=== PATIENT | female | born 1980 | race Caucasian/White ===

== ENCOUNTER 2020-01-09 14:35 | Day surgery (SDC) | payer OTHER ==
[~2020-01-09 14:35] MED LIST: Acetaminophen 500 MG TAB PO PRN; Vedolizumab 300 MG in Sodium Chloride 0.9% 250 ML 250 ML IVPB SCH
[2020-01-09] MEDS ORDERED: Sodium Chloride 0.9% 20 ML ONE (14:37)
[2020-01-09 15:12] VITALS: BP 124/66; TEMP 98.7
== END 2020-01-09 15:50 | disposition home or self-care (01) ==
LOC: ONC/OP 14:35
PROVIDERS: ATTEND Internal Medicine Gastroenterology
DX: K51.90 Ulcerative colitis, unspecified, without complications (principal)
CPT/HCPCS: 96413; J3380; J7050

== ENCOUNTER 2020-01-25 14:08 | Day surgery (SDC) | payer OTHER ==
[~2020-01-25 14:08] MED LIST changes: +Acetaminophen 500 MG TAB PO SCH; +Sodium Chloride 0.9% 1,000 ML IV SCH
[2020-01-25 14:40] VITALS: BP 103/55; TEMP 98.1
== END 2020-01-25 15:27 | disposition home or self-care (01) ==
LOC: ONC/OP 14:08
PROVIDERS: ATTEND Internal Medicine Gastroenterology
DX: K51.90 Ulcerative colitis, unspecified, without complications (principal)
CPT/HCPCS: 96413; J3380; J7050

== ENCOUNTER 2020-02-28 14:29 | Day surgery (SDC) | payer OTHER ==
[2020-02-28] MEDS ORDERED: Sodium Chloride 0.9% 20 ML ONE (14:33)
[2020-02-28 14:55] VITALS: BP 112/67; TEMP 97.9
== END 2020-02-28 15:35 | disposition home or self-care (01) ==
LOC: ONC/OP 14:29
PROVIDERS: ATTEND Internal Medicine Gastroenterology
DX: K51.90 Ulcerative colitis, unspecified, without complications (principal)
CPT/HCPCS: 96413; J3380; J7050

== ENCOUNTER 2020-05-02 14:06 | Day surgery (SDC) | payer OTHER | END 2020-05-02 15:33 | disposition home or self-care (01) | LOC: ONC/OP 14:06 | PROVIDERS: ATTEND Internal Medicine Gastroenterology | DX: K51.90 Ulcerative colitis, unspecified, without complications (principal) | CPT/HCPCS: 96413; J3380; J7050 ==

== ENCOUNTER 2020-07-01 10:14 | Day surgery (SDC) | payer OTHER ==
[2020-07-01] MEDS ORDERED: Sodium Chloride 0.9% 20 ML ONE (10:32)
[2020-07-01 10:36] VITALS: BP 117/69
== END 2020-07-01 11:20 | disposition home or self-care (01) ==
LOC: ONC/OP 10:14
PROVIDERS: ATTEND Internal Medicine Gastroenterology
DX: K51.90 Ulcerative colitis, unspecified, without complications (principal)
CPT/HCPCS: 96413; J3380; J7050

== ENCOUNTER 2020-08-29 14:21 | Day surgery (SDC) | payer OTHER ==
[2020-08-29 14:57] VITALS: BP 119/63; TEMP 97.8
== END 2020-08-29 15:20 | disposition home or self-care (01) ==
LOC: ONC/OP 14:21
PROVIDERS: ATTEND Internal Medicine Gastroenterology
DX: K51.90 Ulcerative colitis, unspecified, without complications (principal)
CPT/HCPCS: 96413; J3380; J7050

== ENCOUNTER 2020-10-29 10:42 | Day surgery (SDC) | payer OTHER ==
[2020-10-29 11:12] VITALS: BP 108/66; TEMP 98.4
[2020-10-29] MEDS ORDERED: Sodium Chloride 0.9% 20 ML ONE (11:19)
== END 2020-10-29 11:41 | disposition home or self-care (01) ==
LOC: ONC/OP 10:42
PROVIDERS: ATTEND Internal Medicine Gastroenterology
DX: K51.90 Ulcerative colitis, unspecified, without complications (principal)
CPT/HCPCS: 96413; J3380; J7050

== ENCOUNTER 2021-01-01 10:28 | Day surgery (SDC) | payer OTHER ==
[~2021-01-01 10:28] MED LIST changes: -Acetaminophen 500 MG TAB PO SCH; +Sodium Chloride 0.9% 20 ML ONE
[2021-01-01 10:38] VITALS: BP 108/67; TEMP 98.6
== END 2021-01-01 12:32 | disposition home or self-care (01) ==
LOC: ONC/OP 10:28
PROVIDERS: ATTEND Internal Medicine Gastroenterology
DX: K51.90 Ulcerative colitis, unspecified, without complications (principal)
CPT/HCPCS: 96413; J3380; J7050

== ENCOUNTER 2021-03-10 11:16 | Day surgery (SDC) | payer OTHER ==
[~2021-03-10 11:16] MED LIST changes: -Sodium Chloride 0.9% 1,000 ML IV SCH; -Sodium Chloride 0.9% 20 ML ONE
[2021-03-10] MEDS ORDERED: Sodium Chloride 0.9% 10 ML ONE ×2 (11:29)
[2021-03-10 12:01] VITALS: BP 121/62; TEMP 98.2
== END 2021-03-10 12:53 | disposition home or self-care (01) ==
LOC: ONC/OP 11:16
PROVIDERS: ATTEND Internal Medicine Gastroenterology
DX: K51.90 Ulcerative colitis, unspecified, without complications (principal)
CPT/HCPCS: 96413; J3380; J7050

== ENCOUNTER 2021-05-08 12:47 | Day surgery (SDC) | payer OTHER ==
[2021-05-08] MEDS ORDERED: Sodium Chloride 0.9% 10 ML ONE ×2 (12:50)
[2021-05-08 13:11] VITALS: BP 104/65; TEMP 98.1
== END 2021-05-08 13:41 | disposition home or self-care (01) ==
LOC: ONC/OP 12:47
PROVIDERS: ATTEND Internal Medicine Gastroenterology
DX: K51.90 Ulcerative colitis, unspecified, without complications (principal)
CPT/HCPCS: 96413; J3380; J7050

== ENCOUNTER 2021-09-14 10:32 | Day surgery (SDC) | payer OTHER ==
[~2021-09-14 10:32] MED LIST changes: -Acetaminophen 500 MG TAB PO PRN; +Acetaminophen 500 MG TAB PO SCH; -Vedolizumab 300 MG in Sodium Chloride 0.9% 250 ML 250 ML IVPB SCH
[2021-09-14] MEDS ORDERED: Vedolizumab 300 MG in Sodium Chloride 0.9% 250 ML 250 ML IVPB SCH (11:00)
[2021-09-14 11:13] VITALS: BP 108/61
== END 2021-09-14 11:40 | disposition home or self-care (01) ==
LOC: ONC/OP 10:32
PROVIDERS: ATTEND Internal Medicine Gastroenterology
DX: K51.90 Ulcerative colitis, unspecified, without complications (principal)
CPT/HCPCS: 96413; J3380; J7050

== ENCOUNTER 2021-11-09 14:30 | Day surgery (SDC) | payer OTHER ==
[~2021-11-09 14:30] MED LIST changes: +Vedolizumab 300 MG in Sodium Chloride 0.9% 250 ML 250 ML IVPB SCH
[2021-11-09] MEDS ORDERED: Acetaminophen 500 MG TAB ONE ×2 (14:41)
[2021-11-09 15:05] VITALS: BP 109/60; TEMP 98.9
== END 2021-11-09 15:42 | disposition home or self-care (01) ==
LOC: ONC/OP 14:30
PROVIDERS: ATTEND Internal Medicine Gastroenterology
DX: K51.90 Ulcerative colitis, unspecified, without complications (principal)
CPT/HCPCS: 96413; J3380; J7050

== ENCOUNTER 2022-01-12 10:13 | Day surgery (SDC) | payer OTHER ==
[2022-01-12] MEDS ORDERED: Vedolizumab 300 MG in Sodium Chloride 0.9% 250 ML 250 ML IVPB SCH (10:30)
[2022-01-12 11:07] VITALS: BP 103/66; TEMP 97.7
[2022-01-12] MEDS ORDERED: Acetaminophen 500 MG TAB ONE ×2 (11:31)
== END 2022-01-12 12:05 | disposition home or self-care (01) ==
LOC: ONC/OP 10:13
PROVIDERS: ATTEND Internal Medicine Gastroenterology
DX: K51.90 Ulcerative colitis, unspecified, without complications (principal)
CPT/HCPCS: 96413; J3380; J7050

== ENCOUNTER 2022-03-08 11:21 | Day surgery (SDC) | payer OTHER ==
[2022-03-08] MEDS ORDERED: Acetaminophen 500 MG TAB ONE ×2 (11:50)
[2022-03-08 12:09] VITALS: BP 99/63; TEMP 97.8
== END 2022-03-08 12:32 | disposition home or self-care (01) ==
LOC: ONC/OP 11:21
PROVIDERS: ATTEND Internal Medicine Gastroenterology
DX: K51.90 Ulcerative colitis, unspecified, without complications (principal)
CPT/HCPCS: 96413; J3380; J7050

== ENCOUNTER 2022-05-05 10:14 | Day surgery (SDC) | payer OTHER ==
[2022-05-05] MEDS ORDERED: Acetaminophen 500 MG TAB ONE (10:32)
[2022-05-05 20:03] VITALS: BP 109/64; TEMP 97.7
== END 2022-05-05 20:04 | disposition home or self-care (01) ==
LOC: ONC/OP 10:14
PROVIDERS: ATTEND Internal Medicine Gastroenterology
DX: K51.90 Ulcerative colitis, unspecified, without complications (principal)
CPT/HCPCS: 96413; J3380; J7050

== ENCOUNTER 2022-07-08 10:17 | Day surgery (SDC) | payer OTHER ==
[~2022-07-08 10:17] MED LIST changes: +EPINEPHrine 1 MG/ML VIAL IJ PRN; +Sodium Chloride 0.9% 500 ML IVPB PRN; +diphenhydrAMINE 50 MG/ML VIAL IVP PRN
[2022-07-08] MEDS ORDERED: Acetaminophen 500 MG TAB ONE (10:33)
[2022-07-08 10:44] VITALS: BP 100/64; TEMP 97.9
== END 2022-07-08 11:34 | disposition home or self-care (01) ==
LOC: ONC/OP 10:17
PROVIDERS: ATTEND Internal Medicine Gastroenterology
DX: K51.90 Ulcerative colitis, unspecified, without complications (principal)
CPT/HCPCS: 96413; J3380; J7050

== ENCOUNTER 2022-09-08 10:33 | Day surgery (SDC) | payer BC, SELFPAY ==
[~2022-09-08 10:33] MED LIST changes: +EPINEPHrine 1 MG/ML AMP IVP PRN; -EPINEPHrine 1 MG/ML VIAL IJ PRN; +Sodium Chloride 0.45% 500 ML IV PRN; -Sodium Chloride 0.9% 500 ML IVPB PRN
[2022-09-08 12:20] VITALS: BP 111/69; TEMP 98.1
== END 2022-09-08 14:51 | disposition home or self-care (01) ==
LOC: ONC/OP 10:33
PROVIDERS: ATTEND Internal Medicine Gastroenterology
DX: K51.90 Ulcerative colitis, unspecified, without complications (principal)
CPT/HCPCS: 96413; J3380; J7050